=== PATIENT | female | born 1945 | race Caucasian/White ===

== ENCOUNTER 2018-05-30 07:58 | Inpatient (IN) ==
[~2018-05-30 07:58] MED LIST: ACETAMINOPHEN 500 MG TABLET PO ONE; DEXAMETHASONE 4 MG/ML INJECTION IVP ONE; FAMOTIDINE PB 20 MG/50 ML BAG IV ONE; LIDOCAINE 1% (10mg/ml) 2mL INJ PF SDV ID ONE; METOCLOPRAMIDE 10mg/2ml INJECTION IVP ONE; ONDANSETRON 4 MG/2 ML INJECTION IVP ONE
[2018-05-30] MEDS ORDERED: EPINEPHrine PF 0.25 MG, BUPIVACAINE 0.25% PF 30 ML, KETOROLAC INJ 60 MG in NS 30 ML OPSITE ONE (08:00)
--- OUTSIDE RECORDS SUMMARY | 2018-05-30 08:12 | External Medical Summary | Continuity of Care Document ---
:1945 Author Organization [facility] [employer] [facility] Address [address] [place], [place] [id number] Phone Care Team Providers Name Role Phone Layla Petty DO Unavailable Unavailable Allergies, Adverse Reactions, Alerts Substance Reaction Severity Status No Known Drug Allergies Unknown Active Medications Medication Instructions Dosage Effective Dates Status Comments (start - stop) oxybutynin chloride take 0.5 - 1 Tablet 2.5 - Active 5 mg tablet by ORAL route 3 times every day titrate up to minimal effective dosing as directed Vitamin D3 1,000 - Active unit tablet CALCIUM 500-VIT D3 - Active (unknown strength) metoprolol succinate take 1 tablet by 25 MG - Active ER 25 mg oral route every tablet,extended day release 24 hr citalopram 40 mg take 1 tablet by 40 MG - Active tablet oral route every day omeprazole 20 mg take 1 capsule by - Active capsule,delayed oral route every release day before a meal lovastatin 40 mg take 1 by Oral Not Available - Active tablet route every day levothyroxine 100 take 1 tablet by 100 MCG - Active mcg tablet oral route every day aspirin 81 mg chew 1 tablet by 81 MG - Active chewable tablet oral route every day Problems Condition Effective Dates (start - stop) Clinical Status Encntr for f/u exam aft trtmt for cond - ot quynh arriola Uterine Cancer, Endometrial Essential (primary) hypertension Uterine Cancer, Endometrial Morbid (severe) obesity due to excess calories Body mass index (BMI) 50-59.9 , adult Constipation, unspecified Overactive bladder Uterine Cancer, Endometrial Morbid (severe) obesity due to excess calories Uterine Cancer, Endometrial Uterine Cancer, Endometrial Morbid (severe) obesity due to excess calories Overactive bladder Body mass index (BMI) 45.0-49.9, adult Uterine Cancer, Endometrial Morbid (severe) obesity due to excess calories Body mass index (BMI) 50-59.9 , adult Uterine Cancer, Endometrial Uterine Cancer, Endometrial Disorder of the skin and subcutaneous tissue, unspecified Body mass index (BMI) 45.0-49.9, adult Uterine Cancer, Endometrial Morbid (severe) obesity due to excess calories Essential (primary) hypertension Unspecified atrial fibrillation Postmenopausal Bleeding Body mass index (BMI) 50-59.9 , adult Uterine Cancer, Endometrial Morbid (severe) obesity due to excess calories Overactive bladder Mixed incontinence Body mass index (BMI) 50-59.9 , adult Morbid (severe) obesity due to excess calories Overactive bladder Mixed incontinence Body mass index (BMI) 50-59.9 , adult Mixed incontinence Postmenopausal Bleeding Postmenopausal Bleeding Oth abn and inconclusive findings on dx imaging of breast Hypertension - Active GERD Active Depression Active Hyperlipidemia Active Procedures Procedure Date Office/outpatient visit,[facility], [facility] Results Test Name Date and Time Measure Units Reference Range Abnormal Flag Comments Unknown Advance Directives Directive Yes / No Effective Date File Name Unknown Encounters Encounter Practice Location Reason(s) Diagnoses Date Provider Care Team Description For Visit Members Office/outpa [facility] History of Uterine Cancer, Tin Referring tient In Womens uterine Endometrial 5-201 Jaquelin. Provider: visit,est, Health PA, Cancer 8 700 [facility] [place] Box [facility] Medical [facility] N, 1522, complaint) Center [facility] Dr Erik, [facility], 120, [place] , [id number], Earl Elliott, [place], [address]. tel:[phone] tel: , . [id number] tel: [phone] Earle Elliott Uterine Cancer, Tin Referring In Womens Endometrial 3-201 Jaquelin. Provider: Health PA, 8 700 [facility] Radha Wh[place], [address]22, Center [address] Erik, [facility], 120, [place] , [id number], Earl Elliott, [place], [address]. tel: [phone] tel: , . [id number] tel: [phone] Earle Elliott Constipation, Jan-2 Espino Referring In Womens unspecifiedOveracti 0-201 Reuben. Provider: Moreno GUERRERO, ve bladder [address] Tin Landry L, 1522, [place], 700 [place], [place], [facility], [id number] [place] [id number], , . [place] [address], tel: Elliott, tel: [phone] [place], [address]. tel:[phone] Associates Earl Oth abn and Nov- Tin In Womens inconclusive 0-201 Jaquelin. Moreno GUERRERO, findings on dx 8 700 PO Box imaging of breast Medical 1522, [place] Dr Erik, [facility], 120, [id number], Elliott, [facility], tel:[phone] , [place]. tel: [phone] [facility] Uterine Cancer, Oct- Tin Referring In Womens EndometrialDisorder 4-201 Jaquelin. Provider: Moreno GUERRERO, of the skin and 8 700 Layla PO Box subcutaneous Medical Malinda [place], 1522, tissue, Center 720 [place], unspecifiedBody , [facility], mass index (BMI) 120, [place] , [id number], 45.0-49.9, adult Earl Elliott, [place], [address]. tel: [phone] tel: , [place]. [id number] tel: [phone] [facility] Uterine Cancer, Tin Referring In Womens EndometrialMorbid 5-201 Jaquelin. Provider: Moreno GUERRERO, (severe) obesity 7 700 Layla PO Box due to excess Medical Malinda N, 1522, calories Center [facility] Dr Erik, [facility], 120, [place] , [id number], [place], [place], [address]. tel:[phone] tel: , [place]. 8324233 tel: [phone] Associates [facility] Theodore Uterine Cancer, Patric- Mir Referring In Womens EndometrialMorbid 2-201 Kelsey Provider: Moreno GUERRERO, (severe) obesity 7 [address]. [address] Box due to excess Gris, Tin L, 1522, caloriesOveractive [place], 700 [place], bladderBody mass [place], [facility], index (BMI) [id number] Center [id number], 45.0-49.9, adult , [place]. Ian 120, [place] tel:+11-21 Elliott, tel:+ [phone] [place], [address]. tel:[phone] Associates [facility] [place] Uterine Cancer, Nov- Mir Referring In Womens EndometrialMorbid 3-201 Kelsey Provider: Health PA, (severe) obesity 7 e. [address] Box due to excess Gris, Tin L, 1522, caloriesBody mass [place], 700 [place], index (BMI) 50-59.9 [facility], , adult [id number] Center [id number], , [place]. Ian 120, [place] tel: Elliott, tel:+ [phone] [place], [id number]. tel:[phone] Associates Earl Morbid (severe) Espino Referring In Womens obesity due to 3-201 Reuben. Provider: Health PA, excess [address] caloriesOveractive GrisTin blanton L, 1522, bladderMixed [place], 700 [place], incontinenceBody [facility], mass index (BMI) [id number] Center [id number], 50-59.9 , adult , [place]. Ian 120, [place] tel: Elliott, tel:+ [phone] [place], [address]. tel:[phone] Associates Earl Morbid (severe) Espino Referring In Womens obesity due to 6-201 Reuben. Provider: Health PA, excess [address] Box caloriesOveractive [place], Tin L, 1522, bladderMixed [place], 700 [place], incontinenceBody [place], [facility], mass index (BMI) [id number] Center [id number], 50-59.9 , adult , [place]. Ian 120, [place] tel:+11-21 Elliott, tel:+ [phone] [place], [address]. tel:[phone] Associates [facility] Uterine Cancer, Mir Referring In Womens EndometrialMorbid [facility] Provider: Moreno GUERRERO, (severe) obesity 6 e. [address] Box due to excess Tin Landry, 1522, caloriesBody mass [place], 700 [place], index (BMI) 50-59.9 [place], [facility], , adult [id number] Center [id number], , . 120, [place] tel:+11-21 Elliott, tel:[phone] [place], [id number]. tel:[phone] Associates [facility] Uterine Cancer, Mir Referring In Womens Endometrial [facility] Provider: Moreno GUERRERO, 6 e. [address] Tin Landry, 1522, [place], 700 [place], [place], [facility], [id number] Center [id number], , [place]. Ian 120, [place] tel:+11-21 Elliott, tel:[phone] [place], [id number]. tel:[phone] [facility] Encntr for f/u exam Mir Referring In Womens aft trtmt for cond Kelsey Provider: Moreno GUERRERO, [facility] mal 6 e. [address] Box neoplm Tin Landry, 1522, [place], 700 [place], [place], [facility], [id number] [place] [id number], , . Ian 120, [place] tel: Elliott, tel:[phone] [place], [id number]. tel:[phone] Associates [facility] Uterine Cancer, Mir Referring In Womens Endometrial Kelsey Provider: Moreno GUERRERO, 6 e. [address] Tin Land[place], 1522, [place], 700 [place], [place], [facility], [id number] Center [id number], , . Ian 120, [place] tel:+11-21 Earl, tel: [phone] [place], [id number]. tel:[phone] Associates [facility] Uterine Cancer, Patric-0 Mir Referring In Womens EndometrialMorbid 2-201 Kelsey Provider: Moreno GUERRERO, (severe) obesity 6 e. [address] Box due to excess Gris, Tin L, 1522, caloriesEssential [place], 700 [place], (primary) [place], [facility], hypertensionUnspeci [id number] [place] [id number], [facility] , [place]. Ian 120, [place] fibrillationPostmen tel: Earl, tel: [place]ausal [phone] [place], BleedingBody mass [id number]. index (BMI) 50-59.9 tel: , adult [phone] Associates Earl Mixed February- Tin Referring In Womens incontinencePostmen 0-201 Jaquelin. Provider: Moreno GUERRERO, opausal 6 700 [place] PO Box [facility]Post[facility] [place], 1522, [facility] Bleeding Center [address] Erik, [facility], 120, St, [id number], [facility], [place], [address]. tel: [phone] tel:[phone] , [place]. [address] tel: [phone] Associates Earl Essential (primary) Jan- Tin In Womens hypertension 9-201 Jaquelin. Moreno GUERRERO, 6 700 PO Box [facility] 1522, [place] Dr Erik, [facility], 120, [id number], Elliott, [facility], tel: [phone] , [place]. tel: [phone] Family History Family Member Diagnosis Age At Onset Father Hyperlipidemia No family history of Pulmonary Embolism No family history of Breast Cancer Paternal Grandfather Cardiovascular Disease Father Hypertension No family history of Lung Disease No family history of Ovarian Cancer Maternal Grandmother Stomach Cancer Maternal Grandfather Stroke Mother Cardiovascular Disease Mother Obesity Brother Colon Cancer Maternal Grandmother Stomach Cancer No family history of Thyroid Disorder Paternal Grandmother Cardiovascular Disease No family history of Venous Thrombosis No family history of Uterine Cancer Mother Osteoporosis No family history of Kidney Disease No family history of Epilepsy Father Cardiovascular Disease Father Obesity Father Diabetes Immunizations Vaccine Date Status Comments Unknown Payers Payer name Insurance type Covered green party ID Authorization(s) Medicare MB [id number] [facility] Plan 65 [id number] Social History Type Description Quantity Date Captured Alcohol Use Details No Caffeine Use Details combo twice a week per day Tobacco Use Status Never smoked tobacco Smoking Status Never smoker Non-Smoking Tobacco Use : No Details Available : No Details Available Details Vital Signs Date / Height Weight BMI Pulse Blood Temperature Respiratory Body Head BMI Time: Rate Pressure Rate Surface Circumference percentile Area 61.75 233.90 43.1 in lbs 2 mm[Hg] 11:08 kg/m AM eter (2) Chief Complaint And Reason For Visit Most recent encounter only, dated '05/15/2018 11:00'. History of uterine Cancer (chief complaint). Description: Martinez states that everything is going well and she is not having any concerns related to her cancer history. Denies questions or concerns at this time. Scheduled for left hip replacement in 2 weeks. Continues to work on weight loss. Reason For Referral Reason For Referral Unknown Plan Of Care Date Type Action Status Goal Lifestyle education regarding completed diet Goal Lifestyle education regarding completed diet Goal Lifestyle education regarding completed diet Goal Lifestyle education regarding completed diet Goal Lifestyle education regarding completed diet Goal Lifestyle education regarding completed diet Goal Lifestyle education regarding completed diet Appointment Nilsa Chandler BOOKED Appointment Nilsa Chandler BOOKED Future Order: Radiology Order Diagnostic Mammogram Right Breast Ordered ([id number]) Future Order: Radiology Order Breast Ultrasound Right Breast Ordered ([id number]) Date Type Problem Goal Intervention Status Start Date Unknown. History Of Present Illness Encounter Date Complaint History Of Present Illness History of uterine Cancer Martinez states that everything is going well and she is not having any concerns related to her cancer history. Denies questions or concerns at this time. Scheduled for left hip replacement in 2 weeks. Continues to work on weight loss. Functional Status Encounter Date Functional Assessment Cognitive Assessment Unknown Medications Administered Medication Instructions Dosage Effective Dates (start - stop) Status Comments Drug Treatment Unknown Instructions Date Instruction Additional Information Lifestyle education regarding diet Related to Body mass index 45.0-49.9 Giving encouragement to exercise Related to Body mass index 45.0- 49.9 Giving encouragement to exercise Related to Body mass index 45.0- 49.9 Lifestyle education regarding diet Related to Body mass index 45.0-49.9 Giving encouragement to exercise Related to Body mass index 45.0- 49.9 Lifestyle education regarding diet Related to Body mass index 45.0-49.9 Lifestyle education regarding diet Related to Body mass index 50.0-59.9 Giving encouragement to exercise Related to Body mass index 50.0- 59.9 Lifestyle education regarding diet Related to Body mass index 50.0-59.9 Giving encouragement to exercise Related to Body mass index 50.0- 59.9 Giving encouragement to exercise Related to Body mass index 50.0- 59.9 Lifestyle education regarding diet Related to Body mass index 50.0-59.9 Giving encouragement to exercise Related to Body mass index 50.0- 59.9 Lifestyle education regarding diet Related to Body mass index 50.0-59.9 Giving encouragement to exercise Related to Body mass index 50.0- 59.9
--- OUTSIDE RECORDS SUMMARY | 2018-05-30 08:12 | External Medical Summary | Continuity of Care Document ---
:1945 Author Organization [facility] [employer] [facility] Address [address] [place], [place] [id number] Phone Care Team Providers Name Role Phone [...] f/u exam aft trtmt for cond - otlexie arriola Essential (primary) hypertension Uterine Cancer, Endometrial Morbid [...] Depression Active Hyperlipidemia Active Procedures Procedure Date Unknown Results Test Name Date and Time Measure Units Reference Range Abnormal Flag Comments Unknown Advance Directives Directive Yes / No Effective Date File Name Unknown Encounters Encounter Practice Location Reason(s) Diagnoses Date Provider Care Team Description For Visit Members Earle Cullen3 Espino In Womens 0-201 Reuben. [facility], [address] [place], [address]22, [place], [place], [place], [id number], , [place]. [place] tel: tel:[phone] Associates MELIZA [facility] Mar-2 Espino In Womens 9-201 Reuben. [facility], [address] Gris, 1522, [place], [place], [place], [id number], , [place]. [place] tel: tel:[phone] Earle Elliott Oth abn and Tin In Womens inconclusive 0-201 Jaquelin. [facility], findings on dx 8 700 PO Box imaging of breast Medical 1522, [place] [address] Erik, [facility] [place], 120, [id number], Elliott, [facility], tel: [phone] , [place]. tel: [phone] Earle Elliott Uterine Cancer, Oct- Tin Referring In Womens EndometrialDisorder 4-201 Jaquelin. Provider: Moreno GUERRERO, of the skin and 8 700 Layla PO Box subcutaneous Medical Malinda N, 1522, tissue, Center [address] [place], unspecifiedBody , [facility], mass index (BMI) 120, [place] , [id number], 45.0-49.9, adult Earl [place], [place], [address]. tel: [phone] tel: , [place]. 3553186 tel: [phone] Associates [facility] Uterine Cancer, Tin Referring In Womens EndometrialMorbid Jaquelin. Provider: Health PA, (severe) obesity 7 700 Layla PO Box due to excess Medical Malinda N, 1522, calories Center [facility] [place], , [facility], 120, Center , [id number], Earl [place], [place], [address]. tel: [phone] tel: , [place]. 96[address]01 tel: [phone] Associates [facility] Uterine Cancer, Mir Referring In Womens EndometrialMorbid 2- Kelsey Provider: Health PA, (severe) obesity 7 e. [address] Box due to excess GrisTin jiménez L, 1522, caloriesOveractive [place], 700 [place], bladderBody mass [place], [facility], index (BMI) [id number] Center [id number], 45.0-49.9, adult , [place]. [place] 120, [place] tel: Earl, tel: [phone] [place], . tel:[phone] [facility] Uterine Cancer, Mir Referring In Womens EndometrialMorbid 3- Kelsey Provider: Health [facility], (severe) obesity 7 e. [address] Box due to excess Tin Landry L, 1522, caloriesBody mass [place], 700 [place], index (BMI) 50-59.9 [place], [facility], , adult [id number] Center [id number], , [place]. Ian 120, [place] tel: Earl, tel: [phone] [place], [address]. tel:[phone] Associates Earl Morbid (severe) Fe-0 Espino Referring In Womens obesity due to 3-201 Reuben. Provider: Health [facility], excess [address] caloriesOveractive [place]is, Tin L, 1522, bladderMixed [place], 700 [place], incontinenceBody [place], Medical [place], mass index (BMI) 460846491 Center [id number], 50-59.9 , adult , [place]. Ian 120, [place] tel:+11-21 Elliott, tel:[phone] [place], [id number]. tel:[phone] Associates Earl Morbid (severe) Espino Referring In Womens obesity due to 6-201 Reuben. Provider: Health [facility], excess [address] caloriesOveractive [place]is, Tin L, 1522, bladderMixed [place], 700 [place], incontinenceBody [place], [facility], mass index (BMI) 036694559 Center [id number], 50-59.9 , adult , [place]. Ian 120, [place] tel:+11-21 Elliott, tel:[phone] [place], [id number]. tel:[phone] Associates [facility] Uterine Cancer, iMr Referring In Womens EndometrialMorbid Kelsey Provider: Health [facility], (severe) obesity 6 e. [address] PO Box due to excess Gris, Tin L, 1522, caloriesBody mass [place], 700 [place], index (BMI) 50-59.9 [place], [facility], , adult [id number] [place] [id number], , [place]. Ian 120, [place] tel: Elliott, tel:[phone] [place], [id number]. tel:[phone] Associates [facility] Uterine Cancer, Mir Referring In Womens Endometrial Kelsey Provider: Health [facility], 6 e. [address] [place], Tin L, 1522, [place], 700 [place], [place], Medical [place], [id number] [place] [id number], , [place]. Ian 120, [place] tel:+11-21 Elliott, tel:[phone] [place], [address]. tel:[phone] Associates [facility] Encntr for f/u exam Patric-2 Mir Referring In Womens aft trtmt for cond 3-201 Kelsey Provider: Moreno GUERRERO, [facility] 6 e. [address] Box neoplm Tin Landry L, 1522, [place], 700 [place], [place], [facility], [id number] Center [id number], , [place]. Ian 120, [place] tel: Elliott, tel:[phone] [place], [address]. tel:[phone] Associates [facility] Uterine Cancer, Patric-0 Mir Referring In Womens Endometrial 8-201 Kelsey Provider: Moreno GUERRERO, 6 e. [address] Tin Landry L, 1522, [place], 700 [place], [place], [facility], [id number] Center [id number], , [place]. Ian 120, [place] tel: Elliott, tel:[phone] [place], [address]. tel:[phone] Associates [facility] Uterine Cancer, Patric-0 Mir Referring In Womens EndometrialMorbid 2-201 Kelsey Provider: Moreno GUERRERO, (severe) obesity 6 e. [address] PO Box due to excess Tin Landry L, 1522, caloriesEssential [place], 700 [place], (primary) [place], [facility], hypertensionUnspeci [id number] Center [id number], fied atrial , [place]. Ian 120, [place] fibrillationPostmen tel: Elliott, tel:[phone] [place] [id number] [place], BleedingBody mass [id number]. index (BMI) 50-59.9 tel:+ , adult [phone] Associates Earl Mixed Tin Referring In Womens incontinencePostmen 0-201 Jaquelin. Provider: Health [facility], opausal 6 700 [place] PO Box [facility] [place], 1522, [facility] [address] Erik, [place], 120, St, [id number], [facility], [facility] [place], [address]. tel:[phone] tel: , [place]. 5599357 tel: [phone] Associates Earl Essential (primary) Jan- Tin In Womens hypertension 9-201 [facility], 6 700 [address] Medical [address], [address] Dr Erik, [place], 120, [id number], Elliott, [facility], tel:[phone] , . tel: [phone] Family History Family Member Diagnosis Age At [...] Covered green party ID Authorization(s) Medicare MB [id number] [facility] Plan 65 BL [id number] Social History Type Description Quantity Date Captured Unknown Vital Signs Date / Height Weight BMI Pulse Blood Temperature Respiratory Body Head BMI Time: Rate Pressure Rate Surface Circumference percentile Area Unknown Chief Complaint And Reason For Visit Unknown Chief Complaint And Reason For Visit Reason For Referral Reason For Referral Unknown [...] Radiology Order Breast Ultrasound Right Breast Ordered ([id number]) Date Type Problem Goal Intervention Status Start Date Unknown. History Of Present Illness Encounter Date Complaint History Of Present Illness This patient has no known history of present illness Functional Status Encounter Date Functional Assessment Cognitive Assessment Unknown Medications Administered Medication Instructions Dosage Effective Dates (start - stop) Status Comments Drug Treatment Unknown Instructions Date Instruction Additional Information Giving encouragement to exercise Related to Body [...]
--- OUTSIDE RECORDS SUMMARY | 2018-05-30 08:12 | External Medical Summary | Continuity of Care Document ---
:1945 Author Organization [facility] [email or web address] [facility] [facility] Address [address] [place], [place] [id number] Phone Care Team Providers Name Role Phone Layla Petty DO Unavailable Unavailable Allergies, Adverse Reactions, Alerts Substance Reaction Severity Status No Known Drug Allergies Unknown Active Medications Medication Instructions Dosage Effective Status Comments Dates (start - stop) oxybutynin chloride take 0.5 - 1 2.5 - Active 5 mg tablet Tablet by ORAL route 3 times every day titrate up to minimal effective dosing as directed Vitamin D3 1,000 - Active unit tablet CALCIUM 500-VIT D3 - Active (unknown strength) metoprolol take 1 tablet by 25 MG - Active succinate ER 25 mg oral route every tablet,extended [...] Active chewable tablet oral route every day oxybutynin chloride take 0.5 - 1 2.5 - No Longer 5 mg tablet Tablet by ORAL Active route 3 times every day titrate up to minimal effective dosing as directed Problems Condition Effective Dates (start - stop) Clinical Status Encntr for f/u exam aft trtmt for cond - oth quynh friedman neoplestrellita Essential (primary) hypertension Uterine Cancer, Endometrial Morbid [...] Care Team Description For Visit Members Earle [place] Constipation, Apr-2 Espino Referring In Womens unspecifiedOveracti 0-201 Reuben. Provider: Moreno GUERRERO, ve bladder [address] [place] , 1522, [place], 700 [place], [place], [facility], [id number] [place] [id number], , [place]. Ian 120, [place] tel: Earl, tel:[phone] [place], [address] [id number]. tel:[phone] Earle [place] Mar-3 Espino In Womens 0-201 Reuben. Moreno GUERRERO, [address], 1522, [facility], [place], [place], [id number], , . tel: tel:[phone] Associates Earl Oth abn and Feb-2 Tin In Womens inconclusive 0-201 Jaquelin. Health PA, findings on dx 8 700 PO Box imaging of breast Medical 1522, [address] Erik, [facility] [place], 120, [id number], [place], [place], tel:[phone] , [place]. tel: [phone] Associates Earl Uterine Cancer, Tin Referring In Womens EndometrialDisorder 4-201 Jaquelin. Provider: Moreno GUERRERO, of the skin and 8 700 Layla PO Box subcutaneous Medical Malinda N, 1522, tissue, Center 720 [place], unspecifiedBody , [facility], mass index (BMI) 120, [place] , [id number], 45.0-49.9, adult [place], [place], [address]. tel:[phone] tel: , [place]. 8830683 tel: [phone] Associates Earl Uterine Cancer, Tin Referring In Womens EndometrialMorbid -201 Jaquelin. Provider: Moreno GUERRERO, (severe) obesity 7 700 Layla PO Box due to excess Medical Malinda N, 1522, calories Center [facility] Dr Erik, [facility], 120, [place] , [id number], [place], [address]. tel:[phone] tel: , [place]. 7791741 tel: [phone] Associates MELIZA Theodore Uterine Cancer, Mir Referring In Womens EndometrialMorbid 2- Kelsey Provider: Health CESAR, (severe) obesity 7 e. [address] PO Box due to excess [place], Tin L, 1522, caloriesOveractive [place], 700 [place], bladderBody mass [place], [facility] [place], index (BMI) [id number] [place] [id number], 45.0-49.9, adult , [place]. Ian 120, [place] tel: Earl, tel: [phone] [place], 1149016. tel:[phone] Associates [facility] East Uterine Cancer, Mir Referring In Womens EndometrialMorbid 3-201 Kelsey Provider: Health CESAR, (severe) obesity 7 e. [address] PO Box due to excess [place], Tin L, 1522, caloriesBody mass [place], 700 [place], index (BMI) 50-59.9 [place], Medical [place], , adult [id number] Center [id number], , . Ian 120, tel:+11-21 [place], tel:[phone] [place], [address] 625943725. tel:[phone] Earle [place] Morbid (severe) Espino Referring In Womens obesity due to 3-201 Reuben. Provider: Health PA, excess [address] PO Box caloriesOveractive [place], Tin L, 1522, bladderMixed [place], 700 [place], incontinenceBody [place], [facility], mass index (BMI) [id number] Center [id number], 50-59.9 , adult , [place]. Ian 120, tel:+11-21 [place], tel:[phone] [place], 45[address] [id number]. tel:[phone] Earle [place] Morbid (severe) Srinivas Referring In Womens obesity due to 6-201 Reuben. Provider: Health PA, excess [address] PO Box caloriesOveractive [place], Tin L, 1522, bladderMixed [place], 700 [place], incontinenceBody [place], [facility], mass index (BMI) 342217369 Center [id number], 50-59.9 , adult , [place]. Ian 120, [place] tel:+11-21 [place], tel:+ [phone] [place], 1149016. tel:[phone] Associates [facility] Uterine Cancer, Mir Referring In Womens EndometrialMorbid 7-201 Kelsey Provider: Health PA, (severe) obesity 6 e. [address] PO Box due to excess [place], Tin L, 1522, caloriesBody mass [place], 700 [place], index (BMI) 50-59.9 [place], [facility], , adult [id number] Center [id number], , . Ian 120, [place] tel:+11-21 [place], tel:[phone] [place], 1149016. tel:[phone] Associates [facility] Uterine Cancer, Cuba-2 Mir Referring In Womens Endometrial Kelsey Provider: Health CESAR, 6 e. [address] PO Box Tin Landry L, 1522, [place], 700 [place], [place], Medical [place], [id number] Center [id number], , . Ian 120, [place] tel: [place], tel:[phone] [place], [address] [id number]. tel:[phone] Associates [facility] Encntr for f/u exam Patric-2 Mir Referring In Womens aft trtmt for cond Kelsey Provider: Moreno GUERRERO, ot than malig 6 e. [address] PO Box neoplm Tin Landry L, 1522, [place], 700 [place], [place], [facility], [id number] Center [id number], , [place]. Ian 120, [place] tel: [place], tel:[phone] [place], [address] [id number]. tel:[phone] Associates [facility] Uterine Cancer, Patric-0 Mir Referring In Womens Endometrial Kelsey Provider: Moreno GUERRERO, 6 e. [address] PO Box Tin Landry L, 1522, [place], 700 [place], [place], [facility], [id number] Center [id number], , [place]. Ian 120, [place] tel: [place], tel:[phone] [place], 1149016. tel:[phone] Associates [facility] Uterine Cancer, Patric-0 Mir Referring In Womens EndometrialMorbid 2- Kelsey Provider: Health CESAR, (severe) obesity 6 e. [address] PO Box due to excess Tin Landry L, 1522, caloriesEssential [place], 700 [place], (primary) [place], Medical [place], hypertensionUnspeci [id number] Center [id number], fied atrial , [place]. Ian 120, [place] fibrillationPostmen tel: [place], tel: opausal [phone] [place], 969062 BleedingBody mass [id number]. index (BMI) 50-59.9 tel: , adult [phone] Associates Earl Mixed Tin Referring In Womens incontinencePostmen 0-201 Jaquelin. Provider: Health CESAR, opausal 6 700 [place] PO Box BleedingPostmenopau Medical [place], 1522, [facility] [address] Erik, [facility], 120, St, [id number], [facility], [address]. tel: [phone] tel:[phone] , . [id number] tel: [phone] Earle [place] Essential (primary) Tin In Womens hypertension 9-201 Jaquelin. Moreno GUERRERO, 6 700 PO Box Medical [address], [address], [facility], 120, , [facility], tel: [phone] , . tel: [phone] Family History Family Member Diagnosis Age At [...] Covered green party ID Authorization(s) Medicare MB [id number] [facility] Plan 65 [id number] Social History Type Description Quantity Date Captured [...] Radiology Order Breast Ultrasound Right Breast Ordered ([id number]) Date Type Problem Goal Intervention Status Start [...]
--- OUTSIDE RECORDS SUMMARY | 2018-05-30 08:12 | External Medical Summary | Continuity of Care Document ---
:1945 Author Organization [facility] [facility] Address [address] [place], [place] [phone] Phone Care Team Providers Name Role Phone [...] Active Hyperlipidemia Active Procedures Procedure Date Office/outpatient visit,est, [facility] Results Test Name Date and Time Measure Units Reference Range Abnormal Flag Comments Unknown Advance Directives Directive Yes / No Effective Date File Name Unknown Encounters Encounter Practice Location Reason(s) Diagnoses Date Provider Care Team Description For Visit Members Office/outpa Associates Earl endometrial Uterine Cancer, Tin Referring tient In Womens adenocarcino Endometrial 3-201 Jaquelin. Provider: visit,est, estrellita Simon, Stage 1a, 8 700 Layla mod PO Box Grade 1, Medical [facility] N, 1522, (chief Center [address] [place] [address]) , [facility], 120, [place] , [id number], Earl [place], [place], [address]. tel: [phone] tel: [phone] , . [id number] tel: [phone] Earle [place] Constipation, Espino Referring In Womens unspecifiedOverac 0-201 Reuben. Provider: arian Simon bladder [address] PO Box Tin Landry L, 1522, [place], 700 [place], [place], [facility], [id number] [place] [id number], , . [facility] 120, tel: Earl, tel: [phone] [place], [id number]. tel:[phone] Earle [place] Oth abn and Tin In Womens inconclusive 0-201 Jaquelin. Moreno GUERRERO, findings on dx 8 700 PO Box imaging of breast Medical 1522, Center Dr Erik, [facility], 120, [id number], [place], [place], tel: [phone] , [place]. tel: [phone] Associates Earl Uterine Cancer, Oct- Tin Referring In Womens EndometrialDisord 4-201 Jaquelin. Provider: Moreno GUERRERO, er of the skin 8 700 Layla PO Box and subcutaneous Medical Malinda [place], 1522, tissue, Center 720 [place], unspecifiedBody , [facility], mass index (BMI) 120, [place] , , 45.0-49.9, adult Earl [place], [facility] [place], [address]. tel: [phone] tel: , [place]. [id number] tel: [phone] Associates Earl Uterine Cancer, Tin Referring In Womens EndometrialMorbid 5-201 Jaquelin. Provider: Moreno GUERRERO, (severe) obesity 7 700 Layla PO Box due to excess Medical Malinda [place], 1522, calories Center [facility] Dr Erik, [facility], 120, [place] , , Earl [place], [facility], [address]. tel: [phone] tel: , [place]. 4500074 tel: [phone] Associates MELIZA Theodore Uterine Cancer, Mir Referring In Womens EndometrialMorbid 2-201 Kelsey Provider: Moreno GUERRERO, (severe) obesity 7 e. [address] PO Box due to excess [place], Tin L, 1522, caloriesOveractiv [place], 700 [place], e bladderBody [place], [facility], mass index (BMI) [id number] [place] [id number], 45.0-49.9, adult , [place]. Ian 120, [place] tel: Earl, tel: [phone] [place], [id number]. tel:[phone] Associates [facility] Uterine Cancer, Mir Referring In Womens EndometrialMorbid 3-201 Kelsey Provider: Health PA, (severe) obesity 7 e. [address] PO Box due to excess Gris, Tin L, 1522, caloriesBody mass [place], 700 [place], index (BMI) [place], Medical [place], 50-59.9 , adult [id number] Center [id number], , . Ian 120, [place] tel:+11-21 [place], tel:[phone] [place], [id number]. tel:[phone] Associates Earl Morbid (severe) Espino Referring In Womens obesity due to 3-201 Reuben. Provider: Health PA, excess [address] PO Box caloriesOveractiv Gris, Tin L, 1522, e bladderMixed [place], 700 [place], incontinenceBody [place], [facility], mass index (BMI) 550422704 Center [id number], 50-59.9 , adult , [place]. Ian 120, [place] tel:+11-21 [place], tel:[phone] [place], [id number]. tel:[phone] Associates Earl Morbid (severe) Espino Referring In Womens obesity due to 6-201 Reuben. Provider: Health PA, excess [address] PO Box caloriesOveractiv [place], Tin L, 1522, e bladderMixed [place], 700 [place], incontinenceBody [place], [facility], mass index (BMI) [id number] [place] [id number], 50-59.9 , adult , [place]. Ian 120, [place] tel:+11-21 [place], tel:[phone] [place], [id number]. tel:[phone] Associates [facility] Uterine Cancer, Mir Referring In Womens EndometrialMorbid Kelsey Provider: Health PA, (severe) obesity 6 e. [address] PO Box due to excess [place], Tin L, 1522, caloriesBody mass [place], 700 [place], index (BMI) [place], [facility], 50-59.9 , adult [id number] Center [id number], , . Ian 120, [place] tel:+11-21 [place], tel:[phone] [place], [id number]. tel:[phone] Associates [facility] Arben Uterine Cancer, [place]-2 Mir Referring In Womens Endometrial Kelsey Provider: Health PA, 6 e. [address] PO Box Tin Landry, 1522, [place], 700 [place], [place], [facility], [id number] Center [id number], , . Ian 120, [place] tel:+11-21 [place], tel:[phone] [place], [facility] [id number]. tel:[phone] Associates [facility] Arben Encntr for f/u Patric-2 Mir Referring In Womens exam aft trtmt [facility] Provider: Health PA, for cond oth than 6 e. [address] PO Box malig neoplm [place], 1522, [place], 700 [place], [place], [facility], [id number] Center [id number], , [place]. Ian 120, [place] tel:+11-21 [place], tel:[phone] [place], [address] 908051708. tel:[phone] Associates [facility] Uterine Cancer, Patric-0 Mir Referring In Womens Endometrial Kelsey Provider: Moreno GUERRERO, 6 e. [address] PO Box [place], 1522, [place], 700 [place], [place], [facility], [id number] Center [id number], , [place]. Ian 120, [place] tel:+11-21 [place], tel:[phone] [place], [id number]. tel:[phone] Associates [facility] Arben Uterine Cancer, Patric-0 Mir Referring In Womens EndometrialMorbid 2 Kelsey Provider: Health PA, (severe) obesity 6 e. [address] PO Box due to excess Tin Landry, 1522, caloriesEssential [place], 700 [place], (primary) [place], Medical MARC, hypertensionUnspe [id number] Center [id number], cified atrial , [place]. Ian 120, [place] fibrillationPostm tel: Earl, tel: enopausal [phone] [place], BleedingBody mass [id number]. index (BMI) tel: 50-59.9 , adult [id number] Associates Earl Mixed Tin Referring In Womens incontinencePostm 0-201 Jaquelin. Provider: Health PA, enopausal 6 700 [place] PO Box BleedingPostmenop Medical [place], 1522, ausal Bleeding Center [address] Erik, [facility], 120, St, [id number], Earl [place], [facility] [place], [address]. tel: [phone] tel: , [place]. 0600729 tel: [phone] Associates Earl Essential Tin In Womens (primary) 9-201 Jaquelin. Health PA, hypertension 6 700 PO Box Medical 1522, [place] Dr Erik, [facility], 120, [id number], [place], [place], tel: [phone] , [place]. tel: [phone] Family History Family Member Diagnosis Age At [...] Unknown Payers Payer name Insurance type Covered libertarian ID Authorization(s) Medicare MB [id number] [facility] Plan 65 BL [id number] Social History Type Description Quantity Date Captured Alcohol Use Details Unknown Caffeine Use Details Unknown Tobacco Use Status Unknown Smoking Status Never smoker Vital Signs Date / Height Weight BMI Pulse Blood Temperature Respiratory Body Head BMI Time: Rate Pressure Rate Surface Circumference percentile Area 61.75 244.60 45.1 65 133/2018 in lbs 0 /min mm[Hg] 9:53 kg/m AM cristaler (2) Chief Complaint And Reason For Visit Most recent encounter only, dated '02/11/2018 10:00'. endometrial adenocarcinom, Stage 1a, Grade 1, (chief complaint). Description: No complaints. Continues to work on weight loss. Reason [...] Radiology Order Breast Ultrasound Right Breast Ordered ([id number]) Date Type Problem Goal Intervention Status Start Date Unknown. History Of Present Illness Encounter Date Complaint History Of Present Illness endometrial adenocarcinom, Stage 1a, No complaints. Continues to work Grade 1, on weight loss. Functional Status Encounter Date [...]
--- OUTSIDE RECORDS SUMMARY | 2018-05-30 08:13 | External Medical Summary | Continuity of Care Document ---
:1945 Author Organization [facility] [employer] [facility] Address [address] [place], [place] [phone] Phone Care Team Providers Name Role Phone [...] Hyperlipidemia Active Procedures Procedure Date Office/outpatient visit,est, [facility] Results Test Name Date and Time Measure [...] Layla mod PO Box Grade 1, Medical [facility] N, 1522, (chief Center [address] [place] [address]) , [facility], 120, [place] , [id number], Earl [place], [place], [address]. tel: [phone] tel: [phone] , . 7865937 tel: [phone] Earle [place] Constipation, Espino Referring In Womens unspecifiedOverac 0-201 Reuben. Provider: arian Simon bladder [address] PO Box Tin Landry L, 1522, [place], 700 [place], [place], [facility], [id number] [place] [place] [id number], , . [facility] 120, tel: Earl, tel: [phone] [place], 9[address] 930452341. tel:[phone] Earle [place] Oth abn and Tin In Womens inconclusive 0-201 Jaquelin. Moreno GUERRERO, findings on dx 8 700 PO Box imaging of breast Medical 15[address], [address] Dr Erik, [facility], 120, [id number], [place], [place], tel: [phone] [address] , [place]. tel: [phone] Associates [facility] Uterine Cancer, Oct- Tin Referring In Womens EndometrialDisord 4-201 Jaquelin. Provider: Moreno GUERRERO, er of the skin 8 700 Layla PO Box and subcutaneous Medical Malinda [place], 1522, tissue, Center 720 [place], unspecifiedBody , [facility], mass index (BMI) 120, [place] [place] , , 45.0-49.9, adult Earl [place], [place], [address]. tel: [phone] tel: , [place]. 6537705 tel: [phone] Associates Earl Uterine Cancer, Tin Referring In Womens EndometrialMorbid 5-201 Jaquelin. Provider: Moreno GUERRERO, (severe) obesity 7 700 Layla PO Box due to excess Medical Malinda [place], 1522, calories Center [facility] Dr Erik, [facility], 120, [place] [place] , , Earl [place], [place], [address]. tel: [phone] tel: , [place]. 7440134 tel: [phone] Associates MELIZA Theodore Uterine Cancer, Mir Referring In Womens EndometrialMorbid 2-201 Kelsey Provider: Moreno GUERRERO, (severe) obesity 7 e. [address] PO Box due to excess [place], Tin L, 1522, caloriesOveractiv [place], 700 [place], e bladderBody [place], [facility], mass index (BMI) [id number] [facility] [place] [id number], 45.0-49.9, adult , [place]. Ian 120, [place] tel: Earl, tel: [phone] [place], 1149016. tel:[phone] Associates [facility] Uterine Cancer, Mir Referring In Womens EndometrialMorbid 3-201 Kelsey Provider: Health PA, (severe) obesity 7 e. [address] PO Box due to excess [place], Tin L, 1522, caloriesBody mass [place], 700 [place], index (BMI) [place], Medical [place], 50-59.9 , adult [id number] Center [id number], , . Ian 120, [place] tel:+11-21 [place], tel:[phone] [place], 629451 406657170. tel:[phone] Associates Earl Morbid (severe) Espino Referring In Womens obesity due to 3-201 Reuben. Provider: Health PA, excess 7 [address] PO Box caloriesOveractiv [place], Tin L, 1522, e bladderMixed [place], 700 [place], incontinenceBody [place], [facility], mass index (BMI) 034761605 Center [id number], 50-59.9 , adult , [place]. Ian 120, [place] tel:+11-21 [place], tel:[phone] [place], 078177 426511931. tel:[phone] Associates Earl Morbid (severe) Espino Referring In Womens obesity due to 6-201 Reuben. Provider: Health PA, excess 6 [address] PO Box caloriesOveractiv [place], Tin L, 1522, e bladderMixed [place], 700 [place], incontinenceBody [place], [facility], mass index (BMI) 660939838 [facility] [place] 323[address]3361, 50-59.9 , adult , [place]. Ian 120, [place] tel:+11-21 [place], tel:[phone] [place], 486233 972381922. tel:[phone] Associates [facility] Uterine Cancer, Mir Referring In Womens EndometrialMorbid Kelsey Provider: Health PA, (severe) obesity 6 e. [address] PO Box due to excess [place]is, Tin L, 1522, caloriesBody mass [place], 700 [place], index (BMI) [place], [facility], 50-59.9 , adult [id number] Center [id number], , . Ian 120, [place] tel:+11-21 [place], tel:[phone] [place], 7400[address] 494204419. tel:[phone] Associates [facility] Arben Uterine Cancer, [place]-2 Mir Referring In Womens Endometrial Kelsey Provider: Health PA, 6 e. [address] PO Box Tin Landry, 1522, [place], 700 [place], [place], [facility], [id number] Center [id number], , . Ian 120, [place] tel:+11-21 [place], tel:[phone] [place], [facility] [id number]. tel:[phone] Associates [facility] Arben Encntr for f/u Patric-2 Mir Referring In Womens exam aft trtmt [facility] Provider: Health PA, for cond oth than 6 e. [address] PO Box malig neoplm [place], 1522, [place], 700 [place], [place], [facility], [id number] Center [id number], , [place]. Ian 120, [place] tel:+11-21 [place], tel:[phone] [place], 90[address] [id number]. tel:[phone] Associates [facility] Uterine Cancer, Patric-0 Mir Referring In Womens Endometrial Kelsey Provider: Moreno GUERRERO, 6 e. [address] PO Box Tin [place], 1522, [place], 700 [place], [place], [facility], [id number] Center [id number], , [place]. Ian 120, [place] tel:+11-21 [place], tel:[phone] [place], 435513 830041779. tel:[phone] Associates [facility] Arben Uterine Cancer, Patric-0 Mir Referring In Womens EndometrialMorbid 2 [place] Provider: Health PA, (severe) obesity 6 e. [address] PO Box due to excess Tin Landry, 1522, caloriesEssential [place], 700 [place], (primary) [place], Medical MARC, hypertensionUnspe [id number] Center [id number], cified atrial , [place]. Ian 120, [place] fibrillationPostm tel: Earl, tel: enopausal [phone] [place], BleedingBody mass 505928723. index (BMI) tel: 50-59.9 , adult [id number] Associates Earl Mixed Tin Referring In Womens incontinencePostm 0-201 Jaquelin. Provider: Health PA, enopausal 6 700 [place] PO Box BleedingPostmenop Medical [place], 1522, ausal Bleeding Center [address] Erik, [facility], 120, St, [id number], Earl [place], [place], [address]. tel: [phone] tel: , [place]. 5153368 tel: [phone] Associates Earl Essential Tin In Womens (primary) 9-201 Jaquelin. Health PA, hypertension 6 700 PO Box Medical 1522, [place] [address] Erik, [facility], 120, [id number], [place], [place], tel: [phone] , [place]. tel: [phone] Family History Family Member Diagnosis Age At [...] Covered green party ID Authorization(s) Medicare MB [id number] [facility] Plan 65 BL [id number] Social History Type Description Quantity Date Captured [...] Radiology Order Breast Ultrasound Right Breast Ordered ([id number]) Date Type Problem Goal Intervention Status Start [...]
--- OUTSIDE RECORDS SUMMARY | 2018-05-30 08:13 | External Medical Summary | Continuity of Care Document ---
:1945 Author Organization [facility] Address [address] [place], [place] [id number] Phone Care Team Providers Name Role Phone [...] for cond - oth quynh friedman neoplestrellita Constipation, unspecified Overactive bladder Essential (primary) hypertension Uterine Cancer, Endometrial Morbid [...] Active Hyperlipidemia Active Procedures Procedure Date Office/outpatient visit,[facility], [facility] Results Test Name Date and Time Measure Units Reference Range Abnormal Flag Comments Unknown Advance Directives Directive Yes / No Effective Date File Name Unknown Encounters Encounter Practice Location Reason(s) Diagnoses Date Provider Care Team Description For Visit Members Earle [place] Uterine Cancer, Tin Referring In Womens Endometrial 3-201 Jaquelin. Provider: Health [place], 700 [facility] Medical [facility] Miesha, [address], [place] [address] [address] Erik, [facility], 120, [facility], [id number], Earl [place], [place], [address]. tel: [phone] tel: [phone] , . [id number] tel: [phone] Office/outpa [facility] overactive Constipation, Jan- Srinivas Referring tient In Womens bladder unspecifiedOveract 0-201 Reuben. Provider: visit,[facility], [facility], (chief bao bladder [address] [facility] Box complaint) Tin Landry, 1522, [place], [facility] [place], [facility], [id number] [place] [id number], [facility]. [facility] 120, tel: Earl, tel: [phone] [place], [address]167[address] [id number]. tel:[phone] Earle [place] Oth abn and Tin In Womens inconclusive 0-201 Jaquelin. Health CESAR, findings on dx 8 700 PO Box imaging of breast Medical [address], [address] Erik, [facility], 120, [id number], [place], [place], tel:[phone] , [place]. tel: [phone] [facility] Uterine Cancer, Oct- Tin Referring In Womens EndometrialDisorde 4-201 Jaquelin. Provider: Moreno GUERRERO, r of the skin and 8 700 Layla PO Box subcutaneous Medical Malinda N, 1522, tissue, Center [address] [place], [address]Body Dr, [facility], mass index (BMI) 120, [place] , [id number], 45.0-49.9, adult [place], [place], [address]. tel: [phone] tel: , [place]. [id number] tel: [phone] [facility] Uterine Cancer, Tin Referring In Womens EndometrialMorbid 5-201 Jaquelin. Provider: Moreno GUERRERO, (severe) obesity 7 700 Layla PO Box due to excess Medical Malinda N, 1522, calories Center [facility] Dr Erik, [facility], 120, [place] , [id number], [place], [place], [address]. tel: [phone] tel: , [place]. [id number] tel: [phone] [facility] Arben Uterine Cancer, Mir Referring In Womens EndometrialMorbid 2-201 Kelsey Provider: Health CESAR, (severe) obesity 7 e. [address] PO Box due to excess [place], Tin L, 1522, caloriesOveractive [place], 700 [place], bladderBody mass [place], Medical [place], index (BMI) [id number] [place] [id number], 45.0-49.9, adult , [place]. Ian 120, [place] tel: Earl, tel: [phone] [place], [id number]. tel:[phone] [facility] Uterine Cancer, Mir Referring In Womens EndometrialMorbid 3- Kelsey Provider: Health [place], (severe) obesity 7 e. [address] PO Box due to excess Gris, Tin L, 1522, caloriesBody mass [place], 700 [place], index (BMI) [place], Medical [place], 50-59.9 , adult [id number] Center [id number], , [place]. Ian 120, [place] tel:+11-21 [place], tel:[phone] [place], 240869 [id number]. tel:[phone] Associates [facility] Morbid (severe) Nov-0 Srinivas Referring In Womens obesity due to 3-201 Reuben. Provider: Health [place], excess [address] Box caloriesOveractive [place], Tin L, 1522, bladderMixed [place], 700 [place], incontinenceBody [place], [facility], mass index (BMI) [id number] Center [id number], 50-59.9 , adult , [place]. Ian 120, [place] tel:+11-21 [place], tel:[phone] [place], 0847[address] [id number]. tel:[phone] [facility] Morbid (severe) Srinivas Referring In Womens obesity due to 6- Reuben. Provider: Health [place], excess [address] Box caloriesOveractive [place], Tin L, 1522, bladderMixed [place], 700 [place], incontinenceBody [place], [facility], mass index (BMI) [id number] Center [id number], 50-59.9 , adult , [place]. Ian 120, [place] tel:+11-21 [place], tel:[phone] [place], [id number]. tel:[phone] [facility] Uterine Cancer, Mir Referring In Womens EndometrialMorbid 7- Kelsey Provider: Health [place], (severe) obesity 6 e. [address] PO Box due to excess [place], Tin L, 1522, caloriesBody mass [place], 700 [place], index (BMI) [place], [facility], 50-59.9 , adult [id number] Center [id number], , . Ian 120, [place] tel:+11-21 [place], tel:[phone] [place], [id number]. tel:[phone] [facility] Arben Uterine Cancer, [place]-2 Mir Referring In Womens Endometrial [facility] Provider: Health PA, 6 e. [address] Tin Landry, 1522, [place], 700 [place], [place], [facility], [id number] [place] [id number], , . Ian 120, [place] tel:+11-21 [place], tel:[phone] [place], 48[address] [id number]. tel:[phone] [facility] Arben Encntr for f/u Patric-2 Mir Referring In Womens exam aft trtmt for [facility] Provider: Health [place], cond oth than 6 e. [address] Box malig neoplm Tin Landry, 1522, [place], 700 [place], [place], [facility], [id number] Center [id number], , [place]. Ian 120, [place] tel:+11-21 [place], tel:[phone] [place], [id number]. tel:[phone] [facility] Arben Uterine Cancer, Patric-0 Mir Referring In Womens Endometrial Kelsey Provider: Health [place], 6 e. [address] Tin Landry, 1522, [place], 700 [place], [place], [facility], [id number] Center [id number], , [place]. Ian 120, [place] tel:+11-21 [place], tel:[phone] [place], [address]86[address] [id number]. tel:[phone] [facility] Uterine Cancer, Patric-0 Mir Referring In Womens EndometrialMorbid 2 Kelsey Provider: Health PA, (severe) obesity 6 e. [address] PO Box due to excess Tin Land[place], 1522, caloriesEssential [place], 700 [place], (primary) [place], Medical [place], hypertensionUnspec [id number] [place] [id number], ified atrial , [place]. Ian 120, [place] fibrillationPostme tel: Earl, tel: nopausal [phone] [place], BleedingBody mass [id number]. index (BMI) tel: 50-59.9 , adult [id number] Associates [facility] Mixed Tin Referring In Womens incontinencePostme 0-201 Jaquelin. Provider: leslee Simon 6 700 [place] PO Box BleedingPostmenopa Medical [place], 1522, [facility] [address] Erik, [facility], 120, St, [id number], Earl [place], [place], [address]. tel: [phone] tel: , [place]. [id number] tel: [phone] Associates [facility] Essential Tin In Womens (primary) 9-201 Jaquelin. Health CESAR, hypertension 6 700 PO Box Medical [address], [place] Dr Erik, [facility], 120, [id number], [place], [place], tel: [phone] , [place]. tel: [phone] Family History Family Member Diagnosis Age At [...] Unknown Payers Payer name Insurance type Covered democrat ID Authorization(s) Medicare MB [id number] [facility] Plan 65 [id number] Social History Type Description Quantity Date Captured [...] Pressure Rate Surface Circumference percentile Area 61.75 246.00 45.3 130/80 -2018 in lbs 6 mm[Hg] 10:11 kg/m AM tamra (2) Chief Complaint And Reason For Visit Unknown [...] Radiology Order Breast Ultrasound Right Breast Ordered (98125) Date Type Problem Goal Intervention Status Start Date Unknown. History Of Present Illness Encounter Date Complaint History Of Present Illness overactive bladder 10/06/2016: Ms Chandler presents today as a referral from Dr Jaquelin Castle for Urinary Incontinence. "I have bladder problems. Leakage bad." The patient has a 2 year history of progressively worsening urinary incontinence, more so this last year. It was predominantly urge related, sometimes without sensory awareness and not usually with activity, straining, coughing, sneezing, etc. She changes 2 to 3 pads per day, sometimes soaked. She mostly drinks water and pop. She has nocturia x2. Her voiding diary was reviewed and was found to have voiding volumes between 75 to 300 with overall good functional capacity. Her intake is reasonable, but not excessive. She denies constipation. She does have sleep apnea and uses a CPAP. She is not diabetic, but she is considerably overweight. She has had a prior hysterectomy. She is reporting no vaginal bleeding. She is , but not sexually active.11/23/16: Ms Chandler presents today as a follow up for her urinary incontinence. States.. Functional Status Encounter Date Functional Assessment Cognitive [...]
[2018-05-30 08:41] VITALS: BMI 42.7
[2018-05-30] MEDS ORDERED: CEFAZOLIN 1 G INJECTION IVP ONE (09:01)
--- NOTE | 2018-05-30 09:12 | Anesthesia Preoperative Report ---
Anesthesia Preoperative Record - Date and Time Date: 05/30/18 Preoperative Diagnosis: Primary OA Left Hip Proposed Procedure: Left tot NPO Since Date: 05/29/18 NPO Since Time: 20:00 Allergies/Adverse Reactions: Allergies Allergy/AdvReac Type Severity Reaction Status Date / Time No Known Allergies Allergy Verified 05/30/18 09:01 - Vital Signs Vital Signs: Temperature 98.1 F 05/30/18 08:39 Pulse Rate 59 L 05/30/18 08:39 Respiratory Rate 16 05/30/18 08:39 Blood Pressure 125/67 05/30/18 08:39 Pulse Oximetry 100 05/30/18 08:39 Height and Weight: Height 1.57 m Weight 106.1 kg Body Mass Index 42.7 - Medications Inpatient Medications: Current Medications Cefazolin Sodium (Kefzol 1 Gm Vial) 2 g IVP PREOP ONE Stop: 05/30/18 09:02 Lactated Ringer's (Lactated Ringers) 1,000 mls @ 50 mls/hr IV .Q20H LEONID Isopropyl Alcohol (Nozin Nasal Swab) 1 each KATHIE Q1M LEONID Stop: 05/30/18 09:33 Miscellaneous Medication (Tranexamic 3gm/Ns 45ml Irr Mix) 75 ml IR O ONE Stop: 05/30/18 09:23 Sodium Chloride (Iv Flush) 10 - 80 ml IV PRN PRN PRN Reason: Flushing Home Medications: Home Medications Medication Instructions Recorded Confirmed Type Metoprolol Succinate 25 mg PO WS #0 01/31/12 05/30/18 History Levothyroxine Tab [Synthroid] 100 mcg PO ACB #0 06/05/13 05/30/18 History Celexa (citalopram) 40 mg tablet 40 mg PO WS tab 03/29/17 05/30/18 History lovastatin 40 mg tablet 40 mg PO WS tab 03/29/17 05/30/18 History Aspirin [Aspirin EC] 81 mg PO WS 04/29/18 05/30/18 History Calcium Carbonate/Vitamin D3 1 each PO WS 04/29/18 05/30/18 History [Calcium 500 + Vit D Caplet] Omeprazole [Prilosec] 20 mg PO WS 04/29/18 05/30/18 History Oxybutynin Chloride 5 mg PO WS 04/29/18 05/30/18 History Phentermine HCl 37.5 mg PO WS 04/29/18 05/30/18 History Is Patient on Beta Monet?: Yes Beta Monet Last Dose Date/Time: Metoprolol 25 mg PO 05/29/2018 2100 - Medical History Respiratory: Reports: Sleep Apnea (uses CPAP) Cardiovascular: Reports: Arrhythmia (AFib,paroxysimal), Hypertension, High Cholesterol Gastrointestional: Reports: Gastroesophageal Reflux Disease, Morbid Obesity ( BMI 43) Neuro/Musculoskeletal: Reports: Depression Renal/Endocrine: Reports: Thyroid Disease (hypothyroid), Weight Loss (taking phentermine to help with weight loss) Other History: Reports: Cancer (uterine CA, surgical exc only) - Surgical History Respiratory Surgery/Treatments: Reports: CPAP Use GI Surgery/Treatments: Reports: Colonoscopy (polps) Reproductive Surgery/Treatment: Reports: Hysterectomy - Social History Smoking Status: Never smoker Hx Chewing Tobacco Use: No Second Hand Exposure: No Substance Use Type: does not use Alcohol Intake: never - Pertinent Findings EKG: Sinus Rhythm Chest x-ray: Normal Other Studies: Has cardiac clearance - Physical Exam Respiratory Exam: Present: lungs clear, bilateral breath sounds equal Cardiovascular Exam: Present: regular rate and rhythm - Airway Assessment Mallampati Score: II TMD: Other (1.5 FBs) Overall Assessment: may be difficult mask vent, may be difficult intubation ( short chin, thick neck and jowls) - ASA ASA Score: 3 - Plan Anesthesia: Neuroaxial Regional/Trunk Block: Spinal - Discussion Discussion: Discussed risks/options/alternatives of anesthesia and questions answered. Patient consents. Nursing pain assessment noted. Present for Discussion: children (daughter) Attestation Statement: Prior to the delivery of any anesthetic medication, I examined the patient, developed the plan, obtained the patient's consent and discussed the risk and benefits of the procedure with the patient/guardian. - Additional Information Seen by Anesthesia: Yes
[2018-05-30] MEDS: LR 1,000 ML IV SCH ×3 (09:15→12:58)
[2018-05-30] MEDS ORDERED: SALINE FLUSH 10ml SYRINGE IV PRN (09:22)
[2018-05-30] MEDS ORDERED: TRANEXAMIC ACID 3gm/NS 45ml IRR MIX IR ONE (09:22)
[2018-05-30] MEDS: NOZIN NASAL SWAB NAS SCH ×5 (09:57→22:13)
[2018-05-30] MEDS ORDERED: HYDROMORPHONE 2 MG/ML INJECTION IVP PRN (11:01)
[2018-05-30] MEDS ORDERED: METOCLOPRAMIDE 10mg/2ml INJECTION IVP PRN (11:01)
[2018-05-30] MEDS ORDERED: VANCOMYCIN 1,000 MG INJECTION ONE (11:04)
[2018-05-30] MEDS ORDERED: MIDAZOLAM 5mg/5ml INJECTION ONE (11:24)
[2018-05-30] MEDS ORDERED: KETAMINE 500 MG/10 ML INJECTION ONE (11:49)
[2018-05-30] MEDS ORDERED: VANCOMYCIN 1,000 MG INJECTION IAR ONE (12:04)
[2018-05-30] MEDS ORDERED: EPHEDRINE 50mg/ml INJECTION ONE (12:20)
--- NOTE | 2018-05-30 13:43 | Operative Note ---
- Procedure Preoperative Diagnosis: Left hip primary degenerative joint disease Postoperative Diagnosis: Same as preoperative diagnosis. Surgeon: Soo Pillai MD Title Coordinator: Haily Kruger Complications: None. Anesthesia: Spinal. Estimated Blood Loss: See Anesthesia Record. Fluids: Please see Anesthesia Record. Description of Procedure: Mrs. Chandler and her left hip were identified and marked in the preoperative holding area. She was brought back to the operating suite and spinal anesthetic was administered. She was then placed in a lateral decubitus position with her left hip up. The left lower extremity was prepped and draped in my normal sterile fashion. Timeout was performed. The Orlumet robotic arm was used to assist with the surgery. A pelvic array was placed into the iliac crest through three small incisions. A posterior approach was utilized. An approximately 20 cm incision was made in the skin and dissection carried down to the muscle fascia which was then split in line with skin incision. A The short external rotators were identified and tagged and detached. A capsulotomy was performed and the hip dislocated. A femoral neck osteotomy was performed at the pre-templated level measuring down from the femoral head. The head was removed and acetabulum exposed. Labrum was removed. She had a very shallow acetabulum. With little [place] anteversion. The acetabulum was then registered with the robot. The robotic arm was then used to ream with a 49 reamer. The robot then was again used to place a 50 Trident cup in 40 of tilt and 20 of anteversion. The cup was checked for stability but it was not stable and was easily removed from the acetabulum. This was attempted again after reaming another millimeter medially. This point I turned a manual reaming with a 51 reamer and then was able to place a 52 cup in 20 of anteversion and 40 of tilt. This achieved an excellent bite. A liner was then placed. The proximal femur was exposed and prepared with a cookie cutter followed by reaming and broaching to a size 3. We trialed with a standard head. She was stable and just a touch long. After thorough irrigation a final Accolade 2 size 3 stem with 132 neck was placed. Leg length and offset were checked with the robot and were good with a -2.5 head. A final -2.5 ceramic 36 mm head was placed and the hip reduced. Betadine solution was used to irrigate throughout the case. It was followed by normal saline irrigation. Joint cocktail was injected throughout soft tissue. The capsulotomy was repaired with Ethibond. Short external rotators were also repaired with Ethibond. 3 grams of TXA was allowed to sit in the wound for 5 minutes and then suctioned out. 1 g of vancomycin powder was placed into the wound. The muscle fascia was then repaired with #1 Vicryl. I then left my records management assistant to close the subcutaneous tissue with 2-0 Vicryl followed by running 4-0 Monocryl skin followed by Dermabond and a sterile dressing. The patient with any placed back into supine position and taken to recovery room in the care of anesthesia.
[2018-05-30] MEDS ORDERED: ONDANSETRON 4 MG/2 ML INJECTION IVP PRN (14:48)
[2018-05-30] MEDS ORDERED: DiphenhydrAMINE 50 MG/ML INJECTION IVP PRN (14:48)
[2018-05-30] MEDS ORDERED: LORazepam 1 MG TABLET PO PRN (14:48)
[2018-05-30] MEDS ORDERED: DiphenhydrAMINE 25 MG CAPSULE PO PRN (14:48)
[2018-05-30] MEDS ORDERED: NOZIN NASAL SWAB NAS ONE (14:48)
--- NOTE | 2018-05-30 15:09 | XRay Report ---
Indication: postoperative image PROCEDURE: XR pelvis w/ 1 view LT hip: Encounter: Initial Comparison: None Findings: Postoperative changes of left total hip replacement are seen. There is expected postoperative subcutaneous gas. No evidence of hardware failure or acute fracture. No retained radiopaque surgical instruments or sponges seen. Impression: New left total hip prosthesis without evidence of immediate complication. .
[2018-05-30] MEDS: NS 1,000 ML IV SCH (15:26)
[2018-05-30] MEDS: TRAMADOL 50 MG TABLET PO PRN (15:49)
[2018-05-30] MEDS: ACETAMINOPHEN 325 MG TABLET PO SCH ×2 (17:08→20:03)
[2018-05-30] MEDS ORDERED: OMEPRAZOLE 20 MG CAPSULE PO SCH (17:30)
[2018-05-30] MEDS ORDERED: CITALOPRAM 40 MG TABLET PO SCH (17:30)
[2018-05-30] MEDS ORDERED: LOVASTATIN 40 MG TABLET PO SCH (17:30)
[2018-05-30] MEDS: CEFAZOLIN 2 G in NS 100 ML IV SCH (18:51)
[2018-05-30] MEDS ORDERED: DEXAMETHASONE 20 MG/5 ML INJECTION IVP ONE (19:00)
[2018-05-30] MEDS: ASPIRIN *EC* 81 MG TABLET PO SCH (20:03)
[2018-05-30] MEDS: DOCUSATE SODIUM 100 MG CAPSULE PO SCH (20:03)
[2018-05-30] MEDS ORDERED: SENNOSIDES 8.6 MG TABLET PO SCH (21:00)
[2018-05-31] MEDS: NS 1,000 ML IV SCH ×2 (00:07→03:48)
[2018-05-31] MEDS: CEFAZOLIN 2 G in NS 100 ML IV SCH (03:02)
[2018-05-31] MEDS: NOZIN NASAL SWAB NAS SCH (05:35)
[2018-05-31] MEDS ORDERED: LEVOTHYROXINE 100 MCG TABLET PO SCH (06:30)
[2018-05-31] MEDS: TRAMADOL 50 MG TABLET PO PRN ×2 (08:12→10:13)
--- NOTE | 2018-05-31 08:41 | Orthopedic Progress Note ---
Date: Date: 05/31/18 Time: 837 Subjective/Severity of Illness: Nilsa is sitting up in the chair this morning. Has been up ambulating in the rooms. Pain has been well controlled with scheduled Tylenol overnight. Denies any CP, SOA, nausea. Hgb 10.8 Orthopedic Exam Vital signs: Temperature 97.8 F 05/31/18 08:00 Pulse Rate 54 L 05/31/18 08:00 Respiratory Rate 20 05/31/18 08:00 Blood Pressure 106/52 05/31/18 08:00 Pulse Oximetry 100 05/31/18 08:00 - Constitutional General Appearance: Present: alert, orientated x3, cooperative, no acute distress - Respiratory Exam Present: non-labored - Cardiovascular Exam Present: pedal pulses intact - Abdominal Exam Present: soft. Absent: tenderness, distended - Extremities Exam Present: pulses intact - Dressing Dressing: dry, intact, no drainage Comments: Current anti-coagulation protocol for VTE prophylaxis. SCD's for added protection PT/OT services to improve independent function. Discharge Planning per Case Management. - Integumentary Exam Present: pink, warm, dry - Neurological Exam Present: intact to light touch, no deficits - Psychiatric Exam Present: alert, oriented - Labs Result Diagrams: 05/31/18 04:18 05/31/18 04:18 Abnormal lab results 05/31/18 05/31/18 Range/Units 04:18 04:18 Hgb 10.8 L (12-16) GM/DL Chloride 112 H (98-107) MEQ/L BUN 22.0 H (7-17) MG/DL BUN/Creatinine Ratio 28 H (6-26) RATIO Glucose 127 H (65-110) MG/DL H & H 05/31/18 Range/Units 04:18 Hgb 10.8 L (12-16) GM/DL Orthopedic Assessment and Plan (1) Status post left hip replacement Status: Acute Assessment and Plan: Current anti-coagulation protocol for VTE prophylaxis. SCD's. PT/OT services to improve independent function. Discharge Planning per Case Management. - Anticoagulation Therapy Anticoagulation: ASA 81 mg PO BID x6 weeks - Additional Diagnoses Atrial Fibrillation: resume medications, rate controlled Hypertension: stable, resume medications Anemia: no intervention required, patient was asymptomatic, labs monitored CKD: labs monitored and stable Hospital Course Summary Disclaimer: The visit summary below is not to be considered part of the above Progress Note.
--- NOTE | 2018-05-31 08:48 | Discharge Summary ---
Letter to PCP Cover Letter: Nilsa Chandler underwent an elective total joint arthroplasty by Dr. Pillai. Aspirin therapy was initiated for DVT prophylaxis. Aspirin 81mg should be given BID for six weeks postoperatively. Details for their hospitalization can be found in the discharge summary attached. The patient is scheduled to see you one week after surgery for a post-operative check. I hope you find the discharge summary informative and helpful as you resume care of your patient after their surgery. If our office can be of any assistance, please feel free to contact us any time. Orthopedic Discharge Info Date of admission: 05/30/18 07:58 Anticipated date of discharge: 05/31/18 Primary care physician: Layla Petty DO Attending Physician: Juan J Pillai MD Consults: 05/30/18 09:00 Consult to Anesthesiology [CONS] Routine Reason For Exam: Preoperative Assessment 05/30/18 14:48 Case Management Consult [CONS] Routine Reason For Exam: Discharge Planning DME-Walker [CONS] Routine Height: 5 ft 2 in Weight: 106.1 kg Total Joint Outpatient Therapy [CONS] Routine Comment: Remove dressing in 2 weeks - Discharge Diagnosis (1) Status post left hip replacement Status: Acute - Laboratory Result Diagrams: 05/31/18 04:18 05/31/18 04:18 Laboratory: Abnormal lab results 05/31/18 05/31/18 Range/Units 04:18 04:18 Hgb 10.8 L (12-16) GM/DL Chloride 112 H (98-107) MEQ/L BUN 22.0 H (7-17) MG/DL BUN/Creatinine Ratio 28 H (6-26) RATIO Glucose 127 H (65-110) MG/DL H & H 05/31/18 Range/Units 04:18 Hgb 10.8 L (12-16) GM/DL Orthopedic Discharge HPI - HPI Comments This patient was admitted for elective surgical tx of end stage degenerative joint disease that failed to respond to conservative treatment. Further details of this is found in the admission H&P. Orthopedic Hospital Course Hospital course: 05/31/18 08:45 After appropriate preoperative clearance and signing of operative consent, the patient was given IV antibiotics, according to orthopedic protocol. The patient was taken to the operating room and underwent elective joint arthroplasty. Following surgery, antibiotics were discontinued less than 24 hours according to joint protocol. Appropriate anticoagulants were initiated and SCDs added for DVT prevention. The dressing was clean, dry, and intact. Pain control was obtained via multimodal approach. Bowel motivation addressed with scheduled and PRN medications. Early mobilization was initiated through PT services. Discharge arrangements made by a collaborative effort between the patient and Case Management. Atrial fibrillation- home medications restart, SR on telemetry, rate controlled. HTN- home medications restarted SBP 130-170s. CKD- GFR remained stable 53-56. Electrolytes WNL on lab Post op anemia, hgb 10.8, patient asymptomatic, no acute intervention required. Medical follow up with PCP in 1 week post-op scheduled. Follow-up is scheduled in 2-3 weeks. Discharge instructions given by orthopedic providers and nursing staff at discharge. Discharge condition was good. Care extended to > 2 midnight stays?: No Discharge Plan - Med Rec/Dispo Referrals/Follow Up: Haily Kruger APRN [Advanced Practice Nurse] - 06/19/18 10:15 am Layla Petty DO [Primary Care Provider] - 06/06/18 1:20 pm Additional Instructions: [facility] ON 06/03/2018 AT 8:30AM FOR PHYSICAL THERAPY EVAL. PHONE [phone] Prescriptions: New Tramadol [Ultram] 50 - 100 mg PO Q6H PRN #50 tablet PRN Reason: Pain Acetaminophen [Tylenol] 650 mg PO QID tablet Aspirin *EC* [Ecotrin] 81 mg PO BID tablet Docusate Sodium [Colace] 100 mg PO BID PRN capsule PRN Reason: Constipation /Stool Softening Milk of Magnesia [Mom] 30 ml PO DAILY PRN udc PRN Reason: Constipation /Stool Softening PEG 3350 17gm PACKET [Miralax] 17 gm PO DAILY PRN packet PRN Reason: Constipation Continue Metoprolol Succinate 25 mg PO WS #0 Levothyroxine Tab [Synthroid] 100 mcg PO ACB #0 Oxybutynin Chloride 5 mg PO WS Omeprazole [Prilosec] 20 mg PO WS Calcium Carbonate/Vitamin D3 [Calcium 500 + Vit D Caplet] 1 each PO WS Phentermine HCl 37.5 mg PO WS Celexa (citalopram) 40 mg tablet 40 mg PO WS tab lovastatin 40 mg tablet 40 mg PO WS tab Discontinued Aspirin [Aspirin EC] 81 mg PO WS - Disposition 01 Discharged Home, Self-Care - Dismissal Complete Discharge Instructions are:: Complete
[2018-05-31] MEDS: ACETAMINOPHEN 325 MG TABLET PO SCH ×2 (08:56→13:38)
[2018-05-31] MEDS: DOCUSATE SODIUM 100 MG CAPSULE PO SCH (08:56)
[2018-05-31] MEDS: ASPIRIN *EC* 81 MG TABLET PO SCH (08:56)
[2018-05-31] MEDS ORDERED: POLYETHYL GLYCOL 3350 17gm PACKET PO SCH (09:00)
[2018-05-31 10:13] VITALS: RESP 16
[2018-05-31 12:00] VITALS: BP 111/59; PULSE 59; TEMP 97.2; O2SAT 98
[2018-05-31] MEDS ORDERED: SENNOSIDES 8.6 MG TABLET PO PRN (14:22)
[2018-06-01] MEDS ORDERED: BISACODYL 10 MG SUPPOSITORY RECTALLY SCH (20:00)
== END 2018-05-31 13:40 | disposition home or self-care (01) | DRG 470 ==
LOC: NMC.PERIOP 07:58 → SRG 14:47
PROVIDERS: ADMIT Orthopaedic Surgery; ATTEND Orthopaedic Surgery